=== PATIENT | female | born 1990 | race Caucasian/White ===

== ENCOUNTER 2020-08-15 21:02 | Emergency (ER) | payer BC ==
[~2020-08-15] VITALS: Ht 162.6 cm; Wt 61.0 kg
--- NOTE | 2020-08-15 21:27 | NUR ---
UA COLLECTED IN TRIAGE AND SENT TO LAB
[2020-08-15 21:38] LABS: MICROSCOPIC NOT IND
[2020-08-15 23:33] LABS: ALBUMIN 4.3 g/dL (3.4-5.0); ANION GAP 6 mmol/L (5-15); CALCIUM 8.8 mg/dL (8.5-10.1); CHLORIDE 108 mmol/L (98-107); CREATININE 0.61 mg/dL (0.55-1.02)
[2020-08-15 23:35] LABS: BASOPHILS % (AUTO) 1 % (0-1); EOSINOPHILS % (AUTO) 2 % (1-7); LYMPHOCYTES % (AUTO) 34 % (22-44); MEAN CORPUSCULAR HEMOGLOBIN 21.5 pg (27.0-34.8); MEAN CORPUSCULAR HGB CONC 30.9 g/dL (32.4-35.8); MEAN PLATELET VOLUME 7.9 fL (7.4-10.4); MONOCYTES % (AUTO) 8 % (2-9); NEUTROPHILS % (AUTO) 56 % (42-75); PLATELET COUNT 258 x10^3/uL (130-400); RED BLOOD COUNT 5.59 x10^6/uL (3.82-5.3)
[2020-08-15 23:59] LABS: MD NO
[2020-08-16] MEDS ORDERED: ACETAMINOPHEN 500 MG TABLET PO ONE (00:30)
[2020-08-16] MEDS ORDERED: ACETAMINOPHEN 500 MG TABLET ONE (00:43)
[2020-08-16 01:21] VITALS: BP 106/69
[2020-08-16 04:45] LABS: HCG UR SG 1.014 (1.003-1.030)
== END 2020-08-16 01:23 | disposition home or self-care (01) ==
LOC: ED 08-16 00:04
DX: D36.9 Benign neoplasm, unspecified site (principal); N93.9 Abnormal uterine and vaginal bleeding, unspecified; R10.9 Unspecified abdominal pain; Z87.891 Personal history of nicotine dependence; Z90.89 Acquired absence of other organs
CPT/HCPCS: 36415; 76830; 80048; 81003; 81025; 82040; 85025; 99284